=== PATIENT | female | born 1945 | race Caucasian/White ===

== ENCOUNTER 2021-09-10 13:35 | Outpatient (CLI) | payer MEDICARE, OTHER | END 2021-09-10 13:36 | disposition home or self-care (01) | LOC: TBSIIMAG 13:35 | PROVIDERS: ATTEND Neurological Surgery | DX: M25.551 Pain in right hip (principal); M25.552 Pain in left hip; M54.50 Low back pain, unspecified; M47.816 Spondylosis without myelopathy or radiculopathy, lumbar region; M16.0 Bilateral primary osteoarthritis of hip; M81.0 Age-related osteoporosis without current pathological fracture | CPT/HCPCS: 72100 ==

== ENCOUNTER 2023-04-17 12:51 | Outpatient (CLI) | payer MEDICARE, OTHER | END 2023-04-17 12:52 | disposition home or self-care (01) | LOC: NM 12:51 | PROVIDERS: ATTEND Internal Medicine | DX: R10.10 Upper abdominal pain, unspecified (principal) | CPT/HCPCS: 78227; A9537 ==

== ENCOUNTER 2024-01-12 13:14 | Outpatient (CLI) | payer MEDICARE | END 2024-01-12 13:15 | disposition home or self-care (01) | LOC: RAD 13:14 | PROVIDERS: ATTEND Internal Medicine | DX: R06.00 Dyspnea, unspecified (principal) | CPT/HCPCS: 71046 ==

== ENCOUNTER 2024-02-19 05:30 | Emergency (ER) | payer MEDICARE ==
[2024-02-19] MEDS ORDERED: Morphine 4 MG/ML VIAL ONE ×2 (05:41→07:06)
[2024-02-19] MEDS ORDERED: fentaNYL 50 mcg/mL 1 mL Vial ONE ×3 (06:25→09:46)
[2024-02-19 07:35] LABS: #Basophils 0.04 10x3/uL (0.0-0.2); %Basophils 0.4 % (0.0-1.0); %Eosinophils 0.4 % (0.0-10.0); %Monocytes 4.9 % (0.0-10.0); %Neutrophils 90.9 % (42.0-75.0); Hematocrit 38.7 % (36.0-47.0); Hemoglobin 12.5 g/dL (12.0-16.0); Mean Corpuscular HGB CONC 32.3 g/dL (32.0-36.0); Mean Corpuscular Hemoglobin 31.3 pg (27.0-31.0); Mean Corpuscular Volume 96.8 fL (78.0-98.0); Mean Platelet Volume 11.1 fL (7.4-10.4); Platelet Count 130 10x3/uL (130-400); RBC Distribution Width 13.2 % (11.5-14.5)
[2024-02-19 07:53] LABS: Anion Gap 11 mmol/L (10-20); BUN (Urea Nitrogen) 14 mg/dL (9.8-20.1); Calc. Creatinine Clearance 0 mL/min (70-130); Carbon Dioxide 18 mmol/L (23-31); Chloride 116 mmol/L (98-107); Potassium 3.1 mmol/L (3.5-5.1); Sodium 142 mmol/L (136-145)
[2024-02-19 07:54] LABS: ALT (SGPT) Less than 5 U/L (8-55); AST (SGOT) 14 U/L (5-34); Albumin 2.9 g/dL (3.4-4.8); Alkaline Phosphatase 84 U/L (40-110); Bilirubin, Total 0.3 mg/dL (0.2-1.2); Calcium 6.9 mg/dL (7.8-10.44); Estimated GFR 84; Globulin 1.9 g/dL (2.4-3.5); Glucose 114 mg/dL (83-110); Magnesium 1.8 mg/dL (1.6-2.6); Protein, Total 4.8 g/dL (5.8-8.1)
[2024-02-19 07:55] LABS: Troponin I Less than 0.010 ng/mL (< 0.028)
[2024-02-19] MEDS ORDERED: PROPOFOL 20 ML ONE (07:58)
== END 2024-02-19 12:20 | disposition short-term general hospital (02) ==
LOC: ERS 05:30
DX: S73.015A Posterior dislocation of left hip, initial encounter (principal); S73.035A Other anterior dislocation of left hip, initial encounter; I10 Essential (primary) hypertension; W19.XXXA Unspecified fall, initial encounter; Z79.899 Other long term (current) drug therapy
CPT/HCPCS: 31500; 70450; 71045; 72192; 73501; 80053; 82962; 83605; 83735; 84484; 85025; 93005; 96374; 96376; 99152; 99153; 99285; J2272; J2704; J3010; 36415; 36416